=== PATIENT | female | born 1930 | race Caucasian/White ===

== ENCOUNTER → 2016-05-08 | Outpatient (CLI) | payer OTHER, BC | LOC: HYPER 05-03 06:57 | DX: L89.311 Pressure ulcer of right buttock, stage 1 (principal); S81.801D Unspecified open wound, right lower leg, subsequent encounter; N18.3 Chronic kidney disease, stage 3 (moderate); I48.1 Persistent atrial fibrillation; Z72.89 Other problems related to lifestyle; X58.XXXD Exposure to other specified factors, subsequent encounter ==

== ENCOUNTER → 2017-01-25 | Outpatient (CLI) | payer OTHER, BC | LOC: RAD 11:57 | DX: J47.9 Bronchiectasis, uncomplicated (principal); I51.7 Cardiomegaly; R06.00 Dyspnea, unspecified ==

== ENCOUNTER 2017-08-06 10:09 | Inpatient (IN) | payer OTHER, BC ==
[~2017-08-06] VITALS: Ht 152.4 cm; Wt 72.2 kg
--- NOTE | ~2017-08-06 | EKG ---
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1930 Requested By: Ruth Combs Order Number: [id number] MD: Tolu Irwin Measurements Intervals [place] Rate: 68 P: IN: QRS: -7 QRSD: 121 T: -37 QT: 460 QTc: 490 Interpretive Statements Atrial fibrillation Poor R wave progression Borderline repolarization abnormality Compared to ECG 05/24/2008 14:12:22 Poor R wave progression is now present Electronically Signed On 08-06-2017 17:46:39 CDT by Tolu Irwin [email or web address] <ELECTRONICALLY SIGNED> By: Tolu Irwin MD, [facility] 08/06/17 1746 1033 103 Tolu Irwin MD, [facility] /EPI
--- NOTE | ~2017-08-06 | EKG ---
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1930 Requested By: Ruth Combs Order Number: [id number] MD: Jg Carmona Measurements Intervals [place] Rate: 97 P: VT: QRS: -50 QRSD: 89 T: -90 QT: 372 QTc: 473 Interpretive Statements Atrial fibrillation Left anterior fascicular block Probable anterior infarct, age indeterminate Compared to ECG 08/06/2017 10:33:50 Left anterior fascicular block now present Myocardial infarct finding now present Poor R-wave progression no longer present Electronically Signed On 08-07-2017 9:56:45 CDT by Jg Carmona [email or web address] <ELECTRONICALLY SIGNED> By: Jg Carmona MD 08/07/17 0956 180 180 Jg Carmona MD /EPI
--- NOTE | ~2017-08-06 | H ---
[facility] [place] [address] HISTORY AND PHYSICAL Name: OFELIA POWERS Room #: 170-5 ADM IN M.R.#: [id number] Admission: 08/06/17 Attend Phys: Luis Felipe Sandoval MD Discharge: Date of : [birth year] Report #: [id number] THIS REPORT FOR: //name// CC: DR NINFA Sandoval DATE OF SERVICE: 08/06/2017 CHIEF COMPLAINT: Shortness of breath. HISTORY OF PRESENT ILLNESS: The patient is an 87-year-old female with history of COPD, mild asthma; history of atrial fibrillation, on anticoagulation, presented to the Emergency Room complaining of 3-day history of shortness of breath and history of cough with white sputum. No history of any fever or chills. No history of any shortness of breath. On arrival to the Emergency Room, the patient was saturating around 87% on room air. The patient is presently on 2 liters of oxygen. No history of any increased lower extremity swelling. She does have some chronic lower extremity swelling. PAST MEDICAL HISTORY: Significant for atrial fibrillation, on anticoagulation, COPD and hypertension. The patient has been using oxygen at home. History of appendectomy, right ankle surgery, bilateral cataract surgery. She has had outpatient cardioversion in the past, left knee arthroscopic surgery, cardiac catheterization in 11/2007. ALLERGIES: She has no known drug allergy. HOME MEDICATIONS: Reviewed, please look at the nursing documentation for home medication. SOCIAL HISTORY: No smoking, alcohol abuse or illicit drug abuse. FAMILY HISTORY: Significant for hypertension. Father smoked. REVIEW OF SYSTEMS: CONSTITUTIONAL: No fever, chills, no weight loss, weight gain. EYES: No change in vision. THROAT: Denies any sore throat. CARDIOVASCULAR: No chest pain. RESPIRATORY: As above. GASTROINTESTINAL: No nausea, vomiting, abdominal pain. [facility] [address] [place] [address] HISTORY AND PHYSICAL Name: OFELIA POWERS Room #: 170-5 [facility]#: [id number] Admission: 08/06/17 Attend Phys: Luis Felipe Sandoval MD Discharge: Date of : [birth year] Report #: [id number] GENITOURINARY: No dysuria, hematuria. NEUROLOGIC: No focal numbness or weakness of the extremities. PSYCHIATRIC: No anxiety or depression. The 12-point review of system is negative other than the positive and negative dictated in the history of present illness and the review of system. PHYSICAL EXAMINATION: VITAL SIGNS: Reviewed. Blood pressure is heart rate of 70 per minute, afebrile. The patient is saturating 97% on 3 liters of oxygen, not in acute respiratory distress. EYES: Pupils equal, reactive to light, nonicteric conjunctivae. NECK: Supple, no JVD, no bruit, no lymphadenopathy. CARDIOVASCULAR SYSTEM: S1, S2, negative S3, no murmur. Irregularly irregular. CHEST: Bilateral air entry present. Expiration prolonged. Reduced breath sounds in the left base. Few wheezes noted. ABDOMEN: Soft, bowel sounds present, no mass, no organomegaly, no tenderness. EXTREMITIES: Periphery has 1-2+ edema bilaterally in lower extremity. No calf tenderness. Dorsalis pedis 1+. NEUROLOGICAL: No gross motor or sensory deficit. LABORATORY DATA: Reviewed. EKG showed atrial fibrillation. BNP is elevated at 8000. Troponin 0.04. Creatinine is 1.3. BUN is 25. INR is 2.2. White count is 6.8. Normal hemoglobin and hematocrit. Blood gas done on 1 liter of oxygen showed a pH of 7.416, pO2 of 108. Chest x-ray showed left lower lung consolidation, infiltrate or atelectasis, mild hazy infiltrate in the right lower lung. X-ray decubitus view shows small bilateral pleural effusion, left more than the right. ASSESSMENT AND PLAN: 1. Acute on chronic respiratory failure secondary to chronic obstructive pulmonary disease/possible pneumonia. Titrate oxygen. 2. Chronic obstructive pulmonary disease exacerbation. The patient will be treated with IV steroids, DuoNebs and on IV antibiotics, Zithromax and ceftriaxone. We will follow blood cultures and adjust antibiotic as needed. Pulmonary has been consulted. 3. History of atrial fibrillation, rate controlled on anticoagulation. INR is 2.3. The patient will be continued on present home medication. We will consult Cardiology. The patient apparently had an echocardiogram done in the last few months. We will try to obtain that report. 4. Deep venous thrombosis prophylaxis. The patient is already on Coumadin. 5. Small bilateral pleural effusion. [address] [address] HISTORY AND PHYSICAL Name: OFELIA POWERS Room #: 170-5 ADM IN ..#: [id number] Admission: 08/06/17 Attend Phys: Luis Felipe Sandoval MD Discharge: Date of : [birth year] Report #: [id number] Treatment plan has been explained to the patient and the family in detail. <ELECTRONICALLY SIGNED> By: Luis Felipe Sandoval MD 08/06/17 1454 1336 1417 Luis Felipe Sandoval MD /nt
--- NOTE | ~2017-08-06 | 2DMMODE ---
[facility] [address] [place] [address] 2 D/M-MODE ECHOCARDIOGRAM Name: OFELIA POWERS Room #: 212-P ADM IN .R.#: [id number] Admission: 08/06/17 Attend Phys: Carmela Maynard Discharge: Date of : [birth year] Date of Service: 08/07/17 1001 Report #: [id number] THIS REPORT FOR: //name// APPROVED REPORT Study performed: 08/07/2017 08:42:44 EXAM: Comprehensive 2D, Doppler, and color-flow Echocardiogram Patient Location: Bedside Room #: [facility] Status: routine BSA: 1.69 HR: 93 bpm BP: 97/52 mmHg Other Information Study Quality: Adequate Indications COPD Atrial Fibrillation Dyspnea Hypertension/HDD 2D Dimensions RVDd: 29.23 mm LVEF(%): 59.98 (>50%) IVSd: 15.01 (7-11mm) LVOT Diam: 18.20 (18-24mm) LVDd: 37.33 mm PWd: 12.91 (7-11mm) Ascending Ao: 27.08 (22-36mm) LVDs: 25.64 (25-40mm) Aortic Root: 26.69 mm IVC: 13.00 mm Sanchez's LVEF: 59.98 % Volumes Left Atrial Volume (Systole) Single Plane 4CH: 106.48 mL Single Plane 2CH: 66.84 mL LA ESV Index: 58.00 mL/m2 Aortic Valve AoV Peak Sabino.: 1.45 m/s AO Peak Gr.: 8.41 mmHg LVOT Max P.58 mmHg LVOT Max V: 0.80 m/s JAZZ Vmax: 1.44 cm2 Pulmonary Valve [facility] [address] [place] [address] 2 D/M-MODE ECHOCARDIOGRAM Name: OFELIA POWERS Carmela Room #: 212-P [facility] IN ..#: [id number] Admission: 08/06/17 Attend Phys: Carmela Maynard Discharge: Date of : [birth year] Date of Service: 08/07/17 1001 Report #: [id number] PV Peak Sabino.: 0.83 m/s PV Peak Gr.: 2.75 mmHg Tricuspid Valve TR Peak Sabino.: 2.84 m/s TR Peak Gr.: 32.97 mmHg PA Pressure: 38.00 mmHg Left Ventricle The left ventricle is normal size. There is normal LV segmental wall motion. Mild concentric left ventricular hypertrophy. Left ventricular systolic function is hyperdynamic. LVEF is 65-70%. This study is not technically sufficient to allow evaluation of the LV diastolic function due to atrial fibrillation. Right Ventricle The right ventricle is normal size. The right ventricular systolic function is normal. Atria Left atrium is dilated. Right atrium is dilated. Aortic Valve The aortic valve is normal in structure. Aortic valve is calcified. Trace aortic regurgitation. There is no aortic valvular stenosis. Mitral Valve The mitral valve is normal in structure. Mild mitral regurgitation. No evidence of mitral valve stenosis. Tricuspid Valve The tricuspid valve is normal in structure. There is mild to moderate tricuspid regurgitation. Estimated PAP 38 mmHg. There is mild pulmonary hypertension. Pulmonic Valve The pulmonary valve is normal in structure. Trace pulmonic regurgitation. Great Vessels The aortic root is normal in size. IVC is normal in size and collapses >50% with inspiration. Pericardium There is no pericardial effusion. [facility] [address] [place] [address] 2 D/M-MODE ECHOCARDIOGRAM Name: OFELIA POWERS Room #: 212-P [facility] IN .R.#: [id number] Admission: 08/06/17 Attend Phys: Carmela Maynard Discharge: Date of : [birth year] Date of Service: 08/07/17 1001 Report #: [id number] <Conclusion> The left ventricle is normal size. LVEF is 65-70%. Left atrium is dilated. Right atrium is dilated. The aortic valve is normal in structure. Aortic valve is calcified. Trace aortic regurgitation. The mitral valve is normal in structure. Mild mitral regurgitation. The tricuspid valve is normal in structure. There is mild to moderate tricuspid regurgitation. Estimated PAP 38 mmHg. There is mild pulmonary hypertension. The pulmonary valve is normal in structure. Trace pulmonic regurgitation. There is no pericardial effusion. <ELECTRONICALLY SIGNED> By: Isac Lopez MD 08/07/17 1001 1001 1001 Isac Lopez MD /INF
--- NOTE | ~2017-08-06 | HC ---
[facility] [place] [address] CONSULTATION Name: OFELIA POWERS Room #: 212-P ADM IN M.R.#: [id number] Admission: 08/06/17 Attend Phys: Luis Felipe Sandoval MD Discharge: Date of : [birth year] Report #: [id number] THIS REPORT FOR: //name// CC: Donavan Sandoval DATE OF SERVICE: 08/06/2017 REASON FOR CONSULTATION: Pneumonia. IMPRESSION: 1. Left greater than right pleural effusion. 2. Progressive dyspnea, question etiology. 3. Possible pneumonia. 4. Atrial fibrillation. 5. Acute on chronic respiratory failure on a nebulizer at home. PLAN: Hold Coumadin tonight. Left effusion seems sizable and we will recheck x-ray in a.m. after diuresis. We will cover with antibiotics and encourage pulmonary toilet. May consider venous Doppler of the left lower extremity. HISTORY: An 87-year-old female with a history of lung disease and atrial fibrillation in February, was given a nebulizer and has done well with this. She saw Dr. Weems within the last month and had been doing well. Over the past three to five days, she has had progressive shortness of breath and leg swelling, no definite fever or chills and positive cough and sputum production. PAST MEDICAL HISTORY: ALLERGIES: None known. HOME MEDICATIONS: Included warfarin, potassium, torsemide, diltiazem, Coreg, allopurinol and DuoNeb. SOCIAL HISTORY: Negative tobacco and negative ETOH. REVIEW OF SYSTEMS: No fever or chills. Positive cough, shortness of breath and peripheral edema. Negative for hemoptysis or chest pain. No nausea or vomiting. FAMILY HISTORY: Noncontributory. INITIAL PHYSICAL EXAMINATION: VITAL SIGNS: Temperature 36.3, blood pressure 150/79. GENERAL: He was seen in the Emergency Room and discussed with family. [facility] [address] [place] [address] CONSULTATION Name: OFELIA PWOERS Room #: 212-P [facility] IN .#: [id number] Admission: 08/06/17 Attend Phys: Luis Felipe Sandoval MD Discharge: Date of : [birth year] Report #: [id number] LUNGS: Showed decreased breath sounds, left greater than right. Films were shown to the patient. Mild distress. HEART: Irregular. ABDOMEN: Bowel sounds are present. EXTREMITIES: Left greater than right edema. Moved all extremities. LABORATORY DATA: A pH 7.416, pCO2 of 36 and pO2 108 on 1 liter. INR 2.2. Troponin less than 0.04. BUN 25 and creatinine 1.3. BNP 8353. We will follow closely with you. DVT, PE, bilateral pleural effusions, ascites and lymphedema, question etiology, breast CA, T3 destructive lesion, left popliteal, falls. We will leave on heparin. Discussed with Dr. Hdez. We will try to tap effusions and we will see if GI wishes to tap ascites. PHYSICAL EXAMINATION: GENERAL: The patient relates feeling better, was up in chair, no hemoptysis. LUNGS: Decreased breath sounds bilaterally. HEART: Regular. ABDOMEN: Bowel sounds present. EXTREMITIES: Showed positive edema and wrapped. NEUROLOGIC: Alert and oriented. By: 2032 2226 Berny Hernández MD /nt
[2017-08-06 10:16] VITALS: BP 150/79
[2017-08-06 10:41] LABS: ABSOLUTE NEUTROPHILS 5.4 thou/uL (1.4-8.2); BASOPHILS 0.4 % (0.0-2.0); EOSINOPHILS 1.5 % (0.0-3.0); HEMATOCRIT 40.4 % (37.0-47.0); HEMOGLOBIN 13.6 gm/dL (12.0-15.0); LYMPHOCYTES 9.6 % (24.0-44.0); MCH 32.1 pg (26.0-34.0); MCHC 33.7 g/dL (28.0-37.0); MCV 95.3 fL (80.0-100.0); MONOCYTES 8.3 % (1.0-8.0); PLATELET COUNT 168 thou/uL (150-400); POLYS 80.2 % (36.0-66.0); RBC 4.24 mil/uL (4.20-5.00); RDW 14.7 % (10.5-14.5); WBC 6.8 thou/uL (4.0-11.0)
[2017-08-06 10:51] LABS: ANION GAP 7 mmol/L (7-16); BUN 25 mg/dL (7-18); CALCIUM 9.7 mg/dL (8.5-10.1); CHLORIDE 106 mmol/L (98-107); CO2 29 mmol/L (21-32); CREATININE 1.3 mg/dL (0.6-1.0); GLUCOSE 113 mg/dL (74-106); POTASSIUM 4.1 mmol/L (3.5-5.1); SODIUM 142 mmol/L (136-145)
[2017-08-06] MEDS ORDERED: COUMADIN 5 MG TA5 M1 PO (10:52)
[2017-08-06] MEDS ORDERED: DEMADEX20 MG PO (10:52)
[2017-08-06] MEDS ORDERED: K-DUR 20 MEQ T20 MEQ PO (10:52)
[2017-08-06] MEDS ORDERED: COREG25 MG PO (10:53)
[2017-08-06] MEDS ORDERED: CARDIZEM CD120 MG PO (10:53)
[2017-08-06] MEDS ORDERED: ALLOPURINOL 10100 M1 PO (10:53)
[2017-08-06 10:54] LABS: BE(vivo) -1.4 mmol/L (-2 to +3); HCO3 22.7 mmol/L (22.0-26.0); PCO2 36.1 mmHg (35.0-45.0); pH 7.416 (7.360-7.450)
[2017-08-06] MEDS ORDERED: RESTORIL15 MG PO (10:54)
[2017-08-06] MEDS ORDERED: DUONEB 2.5-0.5 M3 ML INH (10:54)
[2017-08-06 10:58] LABS: APTT 41.5 Seconds (24.5-32.8); INR 2.2; PROTIME 21.9 Seconds (9.3-11.4); TROPONIN-I < 0.04 ng/mL (<0.06)
[2017-08-06 14:16] VITALS: BP 148/76
[2017-08-06 14:18] VITALS: BP 137/62
[2017-08-06] MEDS ORDERED: CLOTRIMAZOLE 1%15 G1 TOP (15:58)
[2017-08-06 16:17] VITALS: BP 129/90
[2017-08-06 19:07] VITALS: BP 117/66
[2017-08-06 23:35] VITALS: BP 131/76
[2017-08-07 04:13] VITALS: BP 128/60
[2017-08-07 04:22] LABS: ABSOLUTE NEUTROPHILS 3.6 thou/uL (1.4-8.2); BASOPHILS 0.3 % (0.0-2.0); HEMATOCRIT 39.9 % (37.0-47.0); HEMOGLOBIN 13.2 gm/dL (12.0-15.0); LYMPHOCYTES 7.2 % (24.0-44.0); MCH 31.7 pg (26.0-34.0); MCHC 33.1 g/dL (28.0-37.0); MCV 95.8 fL (80.0-100.0); MONOCYTES 1.8 % (1.0-8.0); PLATELET COUNT 157 thou/uL (150-400); POLYS 90.7 % (36.0-66.0); RBC 4.16 mil/uL (4.20-5.00); RDW 14.4 % (10.5-14.5)
[2017-08-07 04:37] LABS: INR 2.3; PROTIME 23.7 Seconds (9.3-11.4)
[2017-08-07 04:39] LABS: CALCIUM 9.3 mg/dL (8.5-10.1); CREATININE 1.4 mg/dL (0.6-1.0); POTASSIUM 3.7 mmol/L (3.5-5.1)
[2017-08-07 07:18] VITALS: BP 97/52
[2017-08-07 11:50] VITALS: BP 122/66
[2017-08-07 15:54] VITALS: BP 126/77
[2017-08-07 19:50] VITALS: BP 110/64
[2017-08-08 03:41] LABS: MCH 31.8 pg (26.0-34.0); MCHC 33.2 g/dL (28.0-37.0); MCV 95.7 fL (80.0-100.0); RBC 4.07 mil/uL (4.20-5.00); RDW 14.6 % (10.5-14.5); WBC 7.7 thou/uL (4.0-11.0)
[2017-08-08 03:53] LABS: CALCIUM 9.2 mg/dL (8.5-10.1); CREATININE 1.4 mg/dL (0.6-1.0); POTASSIUM 3.7 mmol/L (3.5-5.1)
[2017-08-08 03:57] LABS: INR 2.2; PROTIME 22.5 Seconds (9.3-11.4)
[2017-08-08 04:45] VITALS: BP 140/66
[2017-08-08 07:08] LABS: BE(vivo) 2.7 mmol/L (-2 to +3); HCO3 27.1 mmol/L (22.0-26.0); PCO2 41.2 mmHg (35.0-45.0); PO2 61.1 mmHg (80.0-100.0); pH 7.436 (7.360-7.450); sO2 92.2 % (92.0-98.0)
[2017-08-08 07:27] VITALS: BP 122/65
[2017-08-08 15:34] VITALS: BP 111/55
[2017-08-08 17:18] VITALS: BP 111/55
[2017-08-08 19:50] VITALS: BP 114/66
[2017-08-09 04:50] VITALS: BP 114/81; BP 131/70
[2017-08-09 06:47] LABS: HEMATOCRIT 40.3 % (37.0-47.0); HEMOGLOBIN 13.5 gm/dL (12.0-15.0); MCH 31.9 pg (26.0-34.0); MCHC 33.6 g/dL (28.0-37.0); MCV 95.1 fL (80.0-100.0); RBC 4.24 mil/uL (4.20-5.00); RDW 14.4 % (10.5-14.5)
[2017-08-09 06:53] LABS: CALCIUM 8.9 mg/dL (8.5-10.1); CREATININE 1.4 mg/dL (0.6-1.0)
[2017-08-09 06:58] LABS: INR 1.7
[2017-08-09 07:20] VITALS: BP 140/67
[2017-08-09 10:24] VITALS: BP 111/55
[2017-08-09 11:30] VITALS: BP 104/58
[2017-08-09 16:04] VITALS: BP 111/55
== END 2017-08-09 16:36 | disposition home health service (06) | DRG 177 ==
LOC: ER 10:09 → EROBS 11:07 → 2N 11:07 → ENTRNSPT 08-09 16:11 → 2N 08-09 16:36
PROVIDERS: Emergency Medicine; Internal Medicine; Internal Medicine Pulmonary Disease
PROC: B24BZZ4 Ultrasonography of Heart with Aorta, Transesophageal (ICD-10-PCS; principal; 2017-08-07)
PROC: 0W9B3ZZ Drainage of Left Pleural Cavity, Percutaneous Approach (ICD-10-PCS; 2017-08-09)
DX: J15.6 Pneumonia due to other Gram-negative bacteria (principal); J96.21 Acute and chronic respiratory failure with hypoxia; I50.33 Acute on chronic diastolic (congestive) heart failure; J44.0 Chronic obstructive pulmonary disease with (acute) lower respiratory infection; J44.1 Chronic obstructive pulmonary disease with (acute) exacerbation; J90 Pleural effusion, not elsewhere classified; I13.0 Hypertensive heart and chronic kidney disease with heart failure and stage 1 through stage 4 chronic kidney disease, or unspecified chronic kidney disease; I48.91 Unspecified atrial fibrillation; N18.9 Chronic kidney disease, unspecified; M19.90 Unspecified osteoarthritis, unspecified site; I34.0 Nonrheumatic mitral (valve) insufficiency; Z90.49 Acquired absence of other specified parts of digestive tract; Z98.42 Cataract extraction status, left eye; Z98.41 Cataract extraction status, right eye; Z79.01 Long term (current) use of anticoagulants; Z79.899 Other long term (current) drug therapy; Z82.49 Family history of ischemic heart disease and other diseases of the circulatory system; Z81.2 Family history of tobacco abuse and dependence
CPT/HCPCS: 10081

== ENCOUNTER → 2017-08-22 | Outpatient (CLI) | payer OTHER, BC ==
[~2017-08-22] MED LIST: ALLOPURINOL 10100 M1 PO; CARDIZEM CD120 MG PO; CLOTRIMAZOLE 1%15 G1 TOP; COREG25 MG PO; COUMADIN 5 MG TA5 M1 PO; DEMADEX20 MG PO; DUONEB 2.5-0.5 M3 ML INH; K-DUR 20 MEQ T20 MEQ PO; RESTORIL15 MG PO
== END ==
LOC: RAD 06:14
DX: J90 Pleural effusion, not elsewhere classified (principal)

== ENCOUNTER 2018-04-09 01:19 | Emergency (ER) | payer OTHER, BC ==
[~2018-04-09] VITALS: Ht 152.4 cm; Wt 70.3 kg
--- NOTE | ~2018-04-09 | EKG ---
[address] [place] [address] ELECTROCARDIOGRAM REPORT Name: POWERSOFELIA HANCOCK Room #: [facility]#: [id number] Admission: 04/09/18 Attend Phys: Discharge: 04/09/18 Date of : [birth year] Report #: [id number] THIS REPORT FOR: //name// [facility] ED Test Date: 2018-04-09 Test Time: 01:46:00 Pat Name: OFELIA POWERS Department: Room: Gender: F Admin Secretary: Rosie OLVERA : 1930 Requested By: Lobo Lrary Order Number: [id number] MD: Darvin Jordan Measurements Intervals [place] Rate: 98 P: ID: QRS: 56 QRSD: 92 T: 268 QT: 344 QTc: 440 Interpretive Statements Atrial fibrillation Multiple ventricular premature complexes Anterior infarct, old Lateral ST segment abnormalities, rule out ischemia Compared to ECG 08/06/2017 18:05:01 Ventricular premature complex(es) now present Possible ischemia now present Left anterior fascicular block no longer present Myocardial infarct finding still present Electronically Signed On 04-09-2018 8:20:56 [employer]IOR LEAD [employer] DEVELOPER by Darvin Jordan [email or web address] <ELECTRONICALLY SIGNED> By: Darvin Jordan MD 04/09/18 0820 5 0146 Darvin Jordan MD /EPI
[2018-04-09 01:56] LABS: ABSOLUTE NEUTROPHILS 9.1 thou/uL (1.4-8.2); BASOPHILS 0.9 % (0.0-2.0); EOSINOPHILS 1.3 % (0.0-3.0); HEMATOCRIT 41.7 % (37.0-47.0); HEMOGLOBIN 13.6 gm/dL (12.0-15.0); LYMPHOCYTES 7.1 % (24.0-44.0); MCH 31.4 pg (26.0-34.0); MCHC 32.7 g/dL (28.0-37.0); MCV 96.2 fL (80.0-100.0); MONOCYTES 8.5 % (1.0-8.0); PLATELET COUNT 152 thou/uL (150-400); POLYS 82.2 % (36.0-66.0); RBC 4.34 mil/uL (4.20-5.00); WBC 11.1 thou/uL (4.0-11.0)
[2018-04-09 01:58] LABS: ANION GAP 8 mmol/L (7-16); BUN 25 mg/dL (7-18); CHLORIDE 105 mmol/L (98-107); CO2 29 mmol/L (21-32); CREATININE 1.3 mg/dL (0.6-1.0); GLUCOSE 128 mg/dL (74-106); POTASSIUM 3.6 mmol/L (3.5-5.1); SODIUM 142 mmol/L (136-145)
[2018-04-09 02:03] LABS: APTT 37.2 Seconds (24.5-32.8); INR 1.9; PROTIME 19.3 Seconds (9.3-11.4)
[2018-04-09 02:07] LABS: ALBUMIN 2.7 g/dL (3.4-5.0); SGOT 20 U/L (15-37); SGPT 20 U/L (30-65); TOTAL BILIRUBIN 0.8 mg/dL (<0.1-1.0); TROPONIN-I <0.06 ng/mL (<0.06)
[2018-04-09] MEDS ORDERED: ALBUTEROL2.5 MG/31 INH (02:51)
[2018-04-09] MEDS ORDERED: AUGMENTIN 500-1 EACH PO (02:51)
[2018-04-09] MEDS ORDERED: PREDNISONE 20 M20 MG PO (02:51)
[2018-04-09 03:31] VITALS: BP 129/48
== END 2018-04-09 03:31 | disposition home or self-care (01) ==
LOC: ER 01:19
PROVIDERS: Emergency Medicine
DX: J44.1 Chronic obstructive pulmonary disease with (acute) exacerbation (principal); I11.0 Hypertensive heart disease with heart failure; I50.9 Heart failure, unspecified; I48.91 Unspecified atrial fibrillation; Z90.49 Acquired absence of other specified parts of digestive tract; Z95.5 Presence of coronary angioplasty implant and graft